=== PATIENT | female | born 1995 | race American Indian/Alaskan Native ===

== ENCOUNTER 2017-02-09 20:38 | Outpatient (CLI) | payer MEDICAID ==
[2017-02-09] MEDS ORDERED: LACTATED RINGERS 1,000 ML IV ONE (21:00)
[2017-02-09 21:27] LABS: Bacteria,Urine 2+ /HPF (Negative); Bilirubin,Urine NEG (Negative); Blood,Urine SM (Negative); Ketones,Urine 80 mg/dL (Negative); Leukocyte Esterase,Urine NEG (Negative); Mucus,Urine FEW /HPF; Nitrite,Urine NEG (Negative); Protein,Urine <15 mg/dL mg/dL (Negative); Urobilinogen,Urine < 2.0 mg/dL (<2.0)
[2017-02-09 21:39] VITALS: BP 117/64
--- NOTE | 2017-02-10 07:44 | Ultrasound Report ---
BIOPHYSICAL PROFILE: 2 - breathing movements 2 - movements 2 - posture and tone 2 - Qualitative amniotic fluid volume 8 - TOTAL SCORE OF POSSIBLE 8 Heart Rate (bpm) 137
== END 2017-02-09 23:35 | disposition swing bed (61) ==
LOC: TRG 20:38
PROVIDERS: ATTEND Obstetrics & Gynecology Gynecology
DX: O36.8130 Decreased fetal movements, third trimester, not applicable or unspecified (principal); O21.2 Late vomiting of pregnancy; O26.893 Other specified pregnancy related conditions, third trimester; R07.9 Chest pain, unspecified; Z3A.33 33 weeks gestation of pregnancy
CPT/HCPCS: 76819; 81001; J7120; 96360

== ENCOUNTER 2017-02-09 23:43 | Emergency (ER) | payer MEDICAID ==
[2017-02-10] MEDS ORDERED: ZOFRAN IV ONE (00:55)
[2017-02-10] MEDS ORDERED: NACL 0.9% 1000 ML 1,000 ML IV ONE ×3 (00:55→05:24)
[2017-02-10] MEDS ORDERED: TYLENOL PO ONE (00:56)
[2017-02-10 01:07] LABS: Anion Gap 20 mmol/L; BUN/Creatinine Ratio 10; Blood Urea Nitrogen 4 mg/dL (7-17); Carbon Dioxide 20 mmol/L (22-30); Chloride 98.6 mmol/L (98-107); Glucose 118 mg/dL (65-100); Potassium 3.6 mmol/L (3.6-5.0); Sodium 135 mmol/L (137-145)
[2017-02-10 01:14] LABS: INR 1.05 (0.87-1.13)
[2017-02-10 02:32] LABS: Hematocrit 30.9 % (30.3-42.9); Hemoglobin 9.6 gm/dl (10.1-14.3); Mean Corpuscular HGB Conc 31 % (30-34); Mean Corpuscular Hemoglobin 23 pg (28-32); Mean Corpuscular Volume 74 fl (79-97); Platelet Count 357 K/mm3 (140-440); Red Blood Count 4.18 M/mm3 (3.65-5.03); White Blood Count 20.7 K/mm3 (4.5-11.0)
--- NOTE | 2017-02-10 02:39 | XRay Report ---
FINAL REPORT EXAM: XR CHEST 1V AP HISTORY: chest pain COMPARISON: None available. FINDINGS: Frontal view(s) of the chest obtained. Heart borderline enlarged accentuated by shallow inspiration and portable AP technique.. No gross consolidation or effusion. No pneumothorax. IMPRESSION: Heart borderline enlarged. Lungs are grossly clear.
--- NOTE | 2017-02-10 04:24 | Emergency Department Report ---
HPI - General Chief Complaint: Chest Pain Time Seen by Provider: 02/10/17 00:53 - HPI HPI: The patient is a 21-year-old female , EGA 31 weeks, who presents for evaluation of nausea, vomiting, and chest pain. She says that she has experienced morning sickness throughout her . The patient reports midsternal burning and at times tightness in quality chest pain for greater than 36 hours, constant since onset, currently 8/10 in severity, exacerbated with vomiting. The patient denies fever, cough, dyspnea, syncope, hemoptysis, unilateral leg swelling, recent immobilization, history of DVT or PE, recent surgery, recent cancer. ED Past Medical Hx - Past Medical History Previous Medical History?: Yes Hx Hypertension: No Hx Diabetes: No Hx Deep Vein Thrombosis: No Hx Renal Disease: No Hx Sickle Cell Disease: No Hx Seizures: No Hx Asthma: Yes (last attachk 5yrs ago, no inhaler) Hx HIV: No - Surgical History Past Surgical History?: Yes Additional Surgical History: tonsil - Social History Smoking Status: Smoker, Current Status Unknown Substance Use Type: None - Medications Home Medications: Home Medications Medication Instructions Recorded Confirmed Last Taken Type Acetaminophen [Tylenol] 500 mg PO Q6HR #30 tablet 02/10/17 Unknown Rx Ondansetron [Zofran TAB] 4 mg PO Q8HR PRN #15 tablet 02/10/17 Unknown Rx ED Review of Systems ROS: Stated complaint: CHEST PAIN Other details as noted in HPI Constitutional: denies: fever ENT: denies: throat or neck pain Respiratory: denies: cough, shortness of breath Cardiovascular: reports chest pain Endocrine: denies unexplained weight loss or gain Gastrointestinal: denies: abdominal pain reports nausea and vomiting Genitourinary: denies: dysuria Musculoskeletal: denies: leg swelling Skin: denies: rash Neurological: denies: headache Hematological/Lymphatic: denies: easy bleeding or easy bruising Psych: denies sadness or hopelessness Physical Exam - Physical Exam Vital Signs: Vital Signs 02/10/17 02/10/17 00:15 04:18 Temperature 98.1 F Pulse Rate 110 H Respiratory 22 16 Rate Blood Pressure 136/79 O2 Sat by Pulse 100 Oximetry Physical Exam: General: well-nourished, well-developed, no acute distress Head: Normocephalic, atraumatic Eyes: normal sclera ENT: Mucous membranes are pale and dry Neck: No neck stiffness, no cervical adenopathy Respiratory: Breath sounds equal bilaterally, no wheezing, rales, or rhonchi Cardio: S1 and S2 present, no murmurs, rubs, gallops, capillary refill is delayed Abdomen: Normoactive bowel sounds, soft abdomen, no tenderness, gravid uterine fundus palpated between umbilicus and sternal Musc: No pitting edema Skin: No rash Neuro: no facial drooping, normal speech Psych: Normal affect ED Course Vital Signs 02/10/17 02/10/17 00:15 04:18 Temperature 98.1 F Pulse Rate 110 H Respiratory 22 16 Rate Blood Pressure 136/79 O2 Sat by Pulse 100 Oximetry ED Medical Decision Making - Lab Data Result diagrams: 02/10/17 00:33 02/10/17 00:33 - Medical Decision Making The patient was seen and examined by myself. The patient is placed on a apparel cutter and continuous pulse ox. On initial evaluation, the patient was found to be in no distress. EKG was negative for findings suggestive of acute cardiac infarct. Labs and imaging are obtained. The patient given 1 L normal saline fluid bolus, Zofran for nausea, and pale Tylenol for pain. Chest x-ray is negative for pneumothorax, focal consolidation, pulmonary vascular congestion , pleural effusion, pneumomediastinum, or other emergent cardiopulmonary disease process. Lab results were non-concerning including nml levels of troponin, electrolytes, renal function. Medical records are reviewed and revealed that the patient received an ultrasound on the labor and delivery floor, and was found to have normal heart tones. The patient was reevaluated and reported that their symptoms were resolved. As the patient has a DYLAN risk score less than 2, and a well's score less than 2, the patient is at low risk of ACS or pulmonary emboli etiology of their symptoms. On reevaluation the patient's found to remain with tachycardia , HR 110. The patient is given an additional 1 L normal saline fluid bolus. The patient will be reevaluated after additional 1 L has been infused. The patient signed off to the oncoming morning shift ED physician Dr. Herrera, for reevaluation of HR after NS infusion. Dr. Herrera agreed to reevaluate the patient and arrange for ultimate appropriate disposition. Critical care attestation.: If time is entered above; I have spent that time in minutes in the direct care of this critically ill patient, excluding procedure time. ED Disposition Clinical Impression: Chest pain in adult, Dehydration, Nausea and vomiting during Disposition: TO HOME OR SELFCARE Is pt being admited?: No Does the pt Need Aspirin: No Condition: Stable Instructions: Chest Pain (ED), Morning Sickness (ED), Diet for Ulcers and Gastritis (ED), Gastroesophageal Reflux Disease (ED) Prescriptions: Acetaminophen [Tylenol] 500 mg PO Q6HR #30 tablet Ondansetron [Zofran TAB] 4 mg PO Q8HR PRN #15 tablet PRN Reason: Nausea Referrals: PRIMARY CARE, [Primary Care Provider] - 3-5 Days KIZZY SORIA MD [Staff Physician] - 3-5 Days JOSSELINE SAHU MD [Staff Physician] - 3-5 Days Time of Disposition: 04:33
[2017-02-10 05:16] LABS: Anisocytosis 1+; Basophils % (Manual) 0 % (0.0-1.8); Blastocytes % (Manual) 0 %; Elliptocytes Few; Hypochromasia 1+; Ovalocytes Few; Tear Drop Cells Few
[2017-02-10 05:17] LABS: Burr Cells Rare; Diff Status Complete; Poikilocytosis Few
[2017-02-10] MEDS ORDERED: NACL 0.9% 1000 ML 1,000 ML ONE (05:26)
[2017-02-10 07:29] VITALS: BP 120/68
== END 2017-02-10 07:27 | disposition home or self-care (01) ==
LOC: ED 23:43
DX: O99.283 Endocrine, nutritional and metabolic diseases complicating pregnancy, third trimester (principal); O21.0 Mild hyperemesis gravidarum; E86.0 Dehydration; Z3A.31 31 weeks gestation of pregnancy
CPT/HCPCS: 36415; 71010; 80048; 84484; 84702; 85007; 85025; 85610; 93005; 93010; 96361; 96374; 99284; J2405; J7030